=== PATIENT | male | born 1950 | race Caucasian/White ===

== ENCOUNTER → 2017-07-23 | Outpatient (CLI) | payer OTHER, MEDICARE ==
[~2017-07-23] MED LIST: ASPIRIN 81M81 MG/TA2 PO; ERYTHROMYCIN5 MG/G1 OP; SUPER EPA 2002000 MG PO; TYLENOL EXTRA500 M1 PO; ZIAC 2.5/6.25MG1 TAB PO; ZOCOR 20MG20 MG PO
== END ==
LOC: COL.VAS 10:39
DX: I48.0 Paroxysmal atrial fibrillation (principal); I48.92 Unspecified atrial flutter; R10.32 Left lower quadrant pain; Z98.890 Other specified postprocedural states